=== PATIENT | female | born 1960 | race Caucasian/White ===

== ENCOUNTER 2017-03-06 17:04 | Emergency (ER) | payer OTHER ==
[~2017-03-06] VITALS: Ht 170.2 cm; Wt 78.0 kg
[2017-03-06] MEDS ORDERED: SERT50TA5 PO (17:37)
[2017-03-06] MEDS ORDERED: ONDANSETRON 2MG/ML, 2ML IVPush ONE (18:00)
[2017-03-06] MEDS ORDERED: SODIUM CHLORIDE 0.9% 1,000ML IVBOLUS ONE (18:00)
[2017-03-06] MEDS ORDERED: SODIUM CHLORIDE FLUSH 10ML SYR IVF ONE (18:00)
[2017-03-06] MEDS ORDERED: FAMOTIDINE 20 MG/2 ML IVP ONE (18:00)
[2017-03-06] MEDS ORDERED: FAMOTIDINE 20 MG/2 ML ONE (18:04)
[2017-03-06] MEDS ORDERED: ONDANSETRON 2MG/ML, 2ML ONE (18:04)
[2017-03-06 18:20] LABS: HEMATOCRIT 36.3 % (34.6-47.8); HEMOGLOBIN 11.9 g/dL (11.7-16.4); WHITE BLOOD COUNT 9.2 x10^3/uL (3.4-10)
[2017-03-06 18:32] LABS: ASPARTATE AMINO TRANSFERASE 11 U/L (15-37); BLOOD UREA NITROGEN 11 mg/dL (7-18)
[2017-03-06 20:10] VITALS: BP 108/56
== END 2017-03-06 20:13 | disposition home or self-care (01) ==
LOC: ED 19:11
DX: K80.50 Calculus of bile duct without cholangitis or cholecystitis without obstruction (principal)
CPT/HCPCS: 36415; 76700; 80053; 81001; 83690; 85025; 86677; 87086; 96361; 96374; 96375; 99285; J2405; J7030; S0028

== ENCOUNTER 2017-04-08 22:22 | Inpatient (IN) | payer OTHER ==
[~2017-04-08] VITALS: Ht 170.2 cm; Wt 79.0 kg
[~2017-04-08 22:22] MED LIST: SERT50TA5 PO
[2017-04-08] MEDS ORDERED: SODIUM CHLORIDE FLUSH 10ML SYR IVF ONE (23:00)
[2017-04-08] MEDS ORDERED: SODIUM CHLORIDE 0.9% 1,000ML IVBOLUS ONE (23:00)
[2017-04-08] MEDS ORDERED: ONDANSETRON 2MG/ML, 2ML IVPush ONE (23:00)
[2017-04-08] MEDS ORDERED: ONDANSETRON 2MG/ML, 2ML ONE (23:21)
[2017-04-08] MEDS ORDERED: HYDROmorphone 1 MG/ML, 1ML ONE (23:21)
[2017-04-08] MEDS: HYDROmorphone 1 MG/ML, 1ML IVPush PRN (23:28)
[2017-04-08 23:30] LABS: HEMATOCRIT 41.1 % (34.6-47.8); HEMOGLOBIN 13.4 g/dL (11.7-16.4)
[2017-04-08 23:39] LABS: ASPARTATE AMINO TRANSFERASE 212 U/L (15-37); BLOOD UREA NITROGEN 7 mg/dL (7-18)
[2017-04-09] MEDS ORDERED: HYDROmorphone 1 MG/ML, 1ML ONE (01:12)
[2017-04-09] MEDS: HYDROmorphone 1 MG/ML, 1ML IVPush PRN (01:16)
[2017-04-09] MEDS ORDERED: ONDANSETRON 2MG/ML, 2ML IVPush PRN (02:30)
[2017-04-09] MEDS ORDERED: D5%-0.45NACL+KCL 20MEQ 1,000 ML IV SCH (02:30)
[2017-04-09] MEDS ORDERED: MORPHINE SULFATE 4 MG/ML, 1ML IVPush PRN (02:30)
[2017-04-09] MEDS ORDERED: SODIUM CHLORIDE FLUSH 10ML SYR IVF PRN (02:30)
[2017-04-09] MEDS ORDERED: CEFOTETAN PMX 2GM/50ML 50 ML IV ONE (02:30)
[2017-04-09 04:08] VITALS: BP 139/76
[2017-04-09 07:25] VITALS: BP 105/65
[2017-04-09 09:10] VITALS: BP 117/75
[2017-04-09] MEDS ORDERED: HYDROmorphone 1 MG/ML, 1ML IV PRN (09:30)
[2017-04-09] MEDS: FAMOTIDINE 20 MG/2 ML IVPush SCH ×2 (11:12→22:41)
[2017-04-09] MEDS: CEFOTETAN PMX 2GM/50ML 50 ML IV SCH ×2 (11:13→23:27)
[2017-04-09] MEDS: D5%-0.45NACL+KCL 20MEQ 1,000 ML IV SCH ×2 (14:00→23:28)
[2017-04-09 14:05] VITALS: BP 101/55
[2017-04-09] MEDS: MORPHINE SULFATE 4 MG/ML, 1ML IVPush PRN ×2 (15:52→17:58)
[2017-04-09] MEDS: ONDANSETRON 2MG/ML, 2ML IVPush PRN (18:09)
[2017-04-09 21:18] VITALS: BP 122/65
[2017-04-10 03:26] VITALS: BP 109/65
[2017-04-10 05:14] LABS: HEMATOCRIT 36.5 % (34.6-47.8); HEMOGLOBIN 11.9 g/dL (11.7-16.4)
[2017-04-10 05:29] LABS: ASPARTATE AMINO TRANSFERASE 222 U/L (15-37); BLOOD UREA NITROGEN 2 mg/dL (7-18)
[2017-04-10 06:40] VITALS: BP 99/58
[2017-04-10] MEDS: D5%-0.45NACL+KCL 20MEQ 1,000 ML IV SCH ×2 (06:40→15:40)
[2017-04-10] MEDS ORDERED: PROPOFOL 10 MG/ML, 20ML ONE (07:12)
[2017-04-10] MEDS ORDERED: DEXAMETHASONE 4 MG/ML, 1ML ONE (07:12)
[2017-04-10] MEDS ORDERED: ONDANSETRON 2MG/ML, 2ML ONE (07:12)
[2017-04-10] MEDS ORDERED: ESMOLOL 100 MG/10 ML ONE (07:12)
[2017-04-10] MEDS ORDERED: ROCURONIUM 10 MG/ML ONE (07:12)
[2017-04-10] MEDS ORDERED: SUCCINYLCHOLINE 20 MG/ML, 10ML ONE (07:12)
[2017-04-10] MEDS ORDERED: LABETALOL 5MG/ML, 20ML IV PRN (07:30)
[2017-04-10] MEDS ORDERED: ONDANSETRON 2MG/ML, 2ML IVPush PRN (07:30)
[2017-04-10] MEDS ORDERED: FENTANYL PF 100 MCG/2ML IV PRN (07:30)
[2017-04-10] MEDS ORDERED: PROMETHAZINE 25 MG/ML, 1ML IV PRN (07:30)
[2017-04-10] MEDS ORDERED: HYDROmorphone 1 MG/ML, 1ML IV PRN (07:30)
[2017-04-10] MEDS ORDERED: hydrALAzine 20 MG/ML, 1ML IV PRN (07:30)
[2017-04-10] MEDS ORDERED: MIDAZOLAM 1 MG/ML, 2ML IV PRN (07:30)
[2017-04-10] MEDS ORDERED: OXYcodone 5 MG/5 ML ORAL.SOL UDC PO PRN (07:30)
[2017-04-10] MEDS ORDERED: ACETAMINOPHEN 325 MG TABLET PO PRN (07:30)
[2017-04-10 09:30] VITALS: BP 121/63
[2017-04-10] MEDS: FAMOTIDINE 20 MG/2 ML IVPush SCH ×2 (10:08→21:37)
[2017-04-10] MEDS: CEFOTETAN PMX 2GM/50ML 50 ML IV SCH ×2 (10:08→21:38)
[2017-04-10] MEDS: ONDANSETRON 2MG/ML, 2ML IVPush PRN (10:55)
[2017-04-10] MEDS: MORPHINE SULFATE 4 MG/ML, 1ML IVPush PRN (10:55)
[2017-04-10] MEDS: PROMETHAZINE 25 MG/ML, 1ML IM PRN (13:30)
[2017-04-10] MEDS ORDERED: HYDROmorphone 2 MG/ML, 1ML IVPush ONE (13:30)
[2017-04-10 13:35] VITALS: BP 111/62
[2017-04-10] MEDS ORDERED: PROMETHAZINE 25 MG/ML, 1ML IM PRN (14:00)
[2017-04-10] MEDS ORDERED: HYDROmorphone 2 MG/ML, 1ML IV ONE (14:00)
[2017-04-10] MEDS: HYDROmorphone 2 MG/ML, 1ML IV PRN ×4 (15:08→23:58)
[2017-04-10 19:00] VITALS: BP 135/74
[2017-04-10 19:50] VITALS: BP 107/64
[2017-04-10] MEDS ORDERED: HYDROmorphone 1 MG/ML, 1ML ONE ×2 (19:50→23:56)
[2017-04-11] MEDS: D5%-0.45NACL+KCL 20MEQ 1,000 ML IV SCH ×3 (00:49→18:27)
[2017-04-11 01:33] VITALS: BP 106/58
[2017-04-11] MEDS ORDERED: HYDROmorphone 1 MG/ML, 1ML ONE ×3 (05:15→23:07)
[2017-04-11] MEDS: HYDROmorphone 2 MG/ML, 1ML IV PRN ×8 (05:17→23:12)
[2017-04-11 05:32] LABS: HEMATOCRIT 39.3 % (34.6-47.8); HEMOGLOBIN 12.9 g/dL (11.7-16.4); WHITE BLOOD COUNT 12.6 x10^3/uL (3.4-10)
[2017-04-11 05:36] LABS: BLOOD UREA NITROGEN 7 mg/dL (7-18)
[2017-04-11 05:43] LABS: ASPARTATE AMINO TRANSFERASE 275 U/L (15-37)
[2017-04-11 07:43] VITALS: BP 109/52
[2017-04-11] MEDS: FAMOTIDINE 20 MG/2 ML IVPush SCH ×2 (08:07→19:57)
[2017-04-11] MEDS: CEFOTETAN PMX 2GM/50ML 50 ML IV SCH ×2 (08:08→22:38)
[2017-04-11 13:39] VITALS: BP 114/59
[2017-04-11] MEDS: DIPHENHYDRAMINE 50 MG/ML, 1ML IVPush PRN (15:30)
[2017-04-11] MEDS ORDERED: DIPHENHYDRAMINE 25 MG CAPSULE PO PRN (15:30)
[2017-04-11] MEDS ORDERED: FENTANYL PF 100 MCG/2ML ONE (15:50)
[2017-04-11] MEDS ORDERED: NALOXONE 1 MG/ML, 2ML ONE (15:50)
[2017-04-11] MEDS ORDERED: MIDAZOLAM 1 MG/ML, 5ML ONE (15:50)
[2017-04-11] MEDS ORDERED: FLUMAZENIL 0.1 MG/1 ML, 5ML ONE (15:50)
[2017-04-11] MEDS ORDERED: LIDOCAINE 2%, 20ML ONE (15:56)
[2017-04-11] MEDS: SERTRALINE 50MG TABLET PO SCH ×2 (19:57→19:59)
[2017-04-11 20:00] VITALS: BP 101/61
[2017-04-12] MEDS: D5%-0.45NACL+KCL 20MEQ 1,000 ML IV SCH ×3 (00:09→09:21)
[2017-04-12] MEDS: HYDROmorphone 2 MG/ML, 1ML IV PRN ×9 (01:56→23:43)
[2017-04-12 02:31] VITALS: BP 104/56
[2017-04-12] MEDS ORDERED: HYDROmorphone 1 MG/ML, 1ML ONE ×4 (04:39→23:40)
[2017-04-12 05:39] LABS: HEMATOCRIT 36.6 % (34.6-47.8); HEMOGLOBIN 12.1 g/dL (11.7-16.4); WHITE BLOOD COUNT 17.1 x10^3/uL (3.4-10)
[2017-04-12 05:54] LABS: ASPARTATE AMINO TRANSFERASE 203 U/L (15-37); BLOOD UREA NITROGEN 6 mg/dL (7-18)
[2017-04-12 06:51] VITALS: BP 98/60
[2017-04-12] MEDS: FAMOTIDINE 20 MG/2 ML IVPush SCH ×2 (09:21→20:18)
[2017-04-12] MEDS: CEFOTETAN PMX 2GM/50ML 50 ML IV SCH ×2 (09:22→22:27)
[2017-04-12 13:40] VITALS: BP 112/69
[2017-04-12] MEDS: D5%-0.9% NACL+KCL 20MEQ 1,000 ML IV SCH (19:05)
[2017-04-12] MEDS: SERTRALINE 50MG TABLET PO SCH (20:18)
[2017-04-12 20:34] VITALS: BP 106/61
[2017-04-13] MEDS ORDERED: HYDROmorphone 1 MG/ML, 1ML ONE ×2 (02:08→04:27)
[2017-04-13] MEDS: HYDROmorphone 2 MG/ML, 1ML IV PRN ×9 (02:11→18:31)
[2017-04-13] MEDS: DIPHENHYDRAMINE 50 MG/ML, 1ML IVPush PRN (02:18)
[2017-04-13 02:22] VITALS: BP 127/64
[2017-04-13] MEDS: D5%-0.9% NACL+KCL 20MEQ 1,000 ML IV SCH ×2 (04:30→14:03)
[2017-04-13 05:45] LABS: HEMATOCRIT 34.1 % (34.6-47.8); HEMOGLOBIN 11.3 g/dL (11.7-16.4); WHITE BLOOD COUNT 16.4 x10^3/uL (3.4-10)
[2017-04-13 06:24] LABS: ASPARTATE AMINO TRANSFERASE 55 U/L (15-37); BLOOD UREA NITROGEN 6 mg/dL (7-18)
[2017-04-13 07:27] VITALS: BP 130/78
[2017-04-13] MEDS: FAMOTIDINE 20 MG/2 ML IVPush SCH ×2 (09:48→22:57)
[2017-04-13] MEDS: CEFOTETAN PMX 2GM/50ML 50 ML IV SCH ×2 (11:02→22:58)
[2017-04-13] MEDS ORDERED: HYDROmorphone PCA 30 MG/30 ML IV PRN (17:30)
[2017-04-13] MEDS: SODIUM CHLORIDE 0.9% 1,000 ML IV SCH (18:34)
[2017-04-13] MEDS: ONDANSETRON 2MG/ML, 2ML IVPush PRN (18:35)
[2017-04-13] MEDS: HYDROmorphone PCA 30 MG/30 ML IV PRN (19:09)
[2017-04-13 21:02] VITALS: BP 113/49
[2017-04-13] MEDS: SERTRALINE 50MG TABLET PO SCH (22:57)
[2017-04-14] MEDS: SODIUM CHLORIDE 0.9% 1,000 ML IV SCH ×7 (01:22→22:06)
[2017-04-14 01:58] VITALS: BP 121/66
[2017-04-14 05:52] LABS: HEMATOCRIT 31.3 % (34.6-47.8); HEMOGLOBIN 10.5 g/dL (11.7-16.4); WHITE BLOOD COUNT 13.7 x10^3/uL (3.4-10)
[2017-04-14 06:18] LABS: ASPARTATE AMINO TRANSFERASE 20 U/L (15-37); BLOOD UREA NITROGEN 6 mg/dL (7-18)
[2017-04-14] MEDS ORDERED: BUPIVACAINE/PF 0.5% ONE (06:49)
[2017-04-14 08:30] VITALS: BP 113/69
[2017-04-14] MEDS: ENOXAPARIN 30 MG/0.3 ML SQ SCH ×2 (09:39→21:33)
[2017-04-14] MEDS: FAMOTIDINE 20 MG/2 ML IVPush SCH ×2 (09:39→21:33)
[2017-04-14] MEDS: CEFOTETAN PMX 2GM/50ML 50 ML IV SCH ×2 (10:00→22:05)
[2017-04-14 14:30] VITALS: BP 135/76
[2017-04-14 15:37] LABS: BLOOD UREA NITROGEN 6 mg/dL (7-18)
[2017-04-14 19:41] VITALS: BP 136/76
[2017-04-14] MEDS: ONDANSETRON 2MG/ML, 2ML IVPush PRN (19:52)
[2017-04-14] MEDS: SERTRALINE 50MG TABLET PO SCH (21:33)
[2017-04-15 01:55] VITALS: BP 128/67
[2017-04-15] MEDS: PROMETHAZINE 25 MG/ML, 1ML IM PRN (04:08)
[2017-04-15] MEDS: SODIUM CHLORIDE 0.9% 1,000 ML IV SCH ×4 (04:10→23:28)
[2017-04-15 04:46] LABS: HEMATOCRIT 28.7 % (34.6-47.8); HEMOGLOBIN 9.6 g/dL (11.7-16.4); WHITE BLOOD COUNT 9.4 x10^3/uL (3.4-10)
[2017-04-15 05:00] LABS: ASPARTATE AMINO TRANSFERASE 19 U/L (15-37); BLOOD UREA NITROGEN 9 mg/dL (7-18)
[2017-04-15 07:52] VITALS: BP 128/66
[2017-04-15] MEDS: FAMOTIDINE 20 MG/2 ML IVPush SCH ×2 (09:37→23:10)
[2017-04-15] MEDS: CEFOTETAN PMX 2GM/50ML 50 ML IV SCH ×2 (11:11→23:10)
[2017-04-15] MEDS ORDERED: MIDAZOLAM 1 MG/ML, 2ML ONE (13:56)
[2017-04-15] MEDS ORDERED: FENTANYL PF 100 MCG/2ML ONE ×6 (13:57→18:32)
[2017-04-15] MEDS ORDERED: CEFAZOLIN 1,000 MG ONE ×2 (13:57)
[2017-04-15] MEDS ORDERED: PROPOFOL 10 MG/ML, 20ML ONE (13:57)
[2017-04-15] MEDS ORDERED: ROCURONIUM 10 MG/ML ONE (13:58)
[2017-04-15] MEDS ORDERED: BUPIVACAINE/PF 0.5% ONE (14:25)
[2017-04-15] MEDS ORDERED: MEPERIDINE/PF 25MG/0.5ML IVPush PRN (14:30)
[2017-04-15] MEDS ORDERED: PROMETHAZINE 25 MG/ML, 1ML IV PRN (14:30)
[2017-04-15] MEDS ORDERED: ACETAMINOPHEN 325 MG TABLET PO PRN (14:30)
[2017-04-15] MEDS ORDERED: LABETALOL 5MG/ML, 20ML IV PRN (14:30)
[2017-04-15] MEDS ORDERED: hydrALAzine 20 MG/ML, 1ML IV PRN (14:30)
[2017-04-15] MEDS ORDERED: OXYcodone 5 MG/5 ML ORAL.SOL UDC PO PRN (14:30)
[2017-04-15] MEDS ORDERED: ONDANSETRON 2MG/ML, 2ML IVPush PRN (14:30)
[2017-04-15] MEDS ORDERED: BUPIVACAINE/PF-EPI 0.5% 1:200K IM ONE (15:22)
[2017-04-15] MEDS ORDERED: ONDANSETRON 2MG/ML, 2ML ONE (15:22)
[2017-04-15] MEDS ORDERED: DEXAMETHASONE 4 MG/ML, 1ML ONE ×2 (15:23)
[2017-04-15] MEDS ORDERED: NEOSTIGMINE 1 MG/ML, 10ML ONE (15:25)
[2017-04-15] MEDS ORDERED: GLYCOPYRROLATE 0.4 MG/2 ML, 2ML ONE ×2 (15:25)
[2017-04-15] MEDS ORDERED: OMNIPAQUE 350 MG/ML, 50 ML BOTTLE ONE (17:56)
[2017-04-15] MEDS ORDERED: HYDROmorphone 1 MG/ML, 1ML ONE (18:32)
[2017-04-15] MEDS ORDERED: HYDROmorphone PCA 30 MG/30 ML ONE (18:32)
[2017-04-15] MEDS: FENTANYL PF 100 MCG/2ML IV PRN ×2 (19:00→19:30)
[2017-04-15] MEDS: HYDROmorphone PCA 30 MG/30 ML IV PRN (19:02)
[2017-04-15] MEDS: HYDROmorphone 1 MG/ML, 1ML IV PRN ×2 (19:11→19:38)
[2017-04-15 20:08] VITALS: BP 115/70
[2017-04-15] MEDS ORDERED: HYDROmorphone PCA 30 MG/30 ML IV PRN (20:36)
[2017-04-15] MEDS ORDERED: HYDROmorphone 2 MG/ML, 1ML IV PRN (21:00)
[2017-04-15 23:39] VITALS: BP 133/69
[2017-04-16 03:26] VITALS: BP 127/67
[2017-04-16] MEDS: SODIUM CHLORIDE 0.9% 1,000 ML IV SCH ×4 (04:41→19:50)
[2017-04-16 05:02] LABS: BLOOD UREA NITROGEN 13 mg/dL (7-18)
[2017-04-16 05:03] LABS: HEMATOCRIT 27.7 % (34.6-47.8); HEMOGLOBIN 9.3 g/dL (11.7-16.4); WHITE BLOOD COUNT 11.9 x10^3/uL (3.4-10)
[2017-04-16 05:05] LABS: ASPARTATE AMINO TRANSFERASE 73 U/L (15-37)
[2017-04-16 08:07] VITALS: BP 122/69
[2017-04-16] MEDS: FAMOTIDINE 20 MG/2 ML IVPush SCH ×2 (10:37→21:20)
[2017-04-16] MEDS: CEFOTETAN PMX 2GM/50ML 50 ML IV SCH ×2 (10:37→21:20)
[2017-04-16] MEDS: ENOXAPARIN 30 MG/0.3 ML SQ SCH (14:56)
[2017-04-16 15:59] VITALS: BP 115/58
[2017-04-16 18:49] VITALS: BP 133/65
[2017-04-17] MEDS: SODIUM CHLORIDE 0.9% 1,000 ML IV SCH ×4 (01:17→16:12)
[2017-04-17 02:30] VITALS: BP 130/70
[2017-04-17] MEDS: ENOXAPARIN 30 MG/0.3 ML SQ SCH ×2 (04:28→16:12)
[2017-04-17 05:49] LABS: HEMATOCRIT 26.6 % (34.6-47.8); HEMOGLOBIN 8.8 g/dL (11.7-16.4); WHITE BLOOD COUNT 10.6 x10^3/uL (3.4-10)
[2017-04-17 07:45] VITALS: BP 138/69
[2017-04-17] MEDS: FAMOTIDINE 20 MG/2 ML IVPush SCH ×2 (09:42→21:33)
[2017-04-17] MEDS: CEFOTETAN PMX 2GM/50ML 50 ML IV SCH ×2 (09:55→21:33)
[2017-04-17 11:46] VITALS: BP 113/68
[2017-04-17 13:35] VITALS: BP 113/57
[2017-04-17 20:58] VITALS: BP 113/57
[2017-04-18] VITALS (7 sets, daily range): BP systolic 112–124; BP diastolic 56–73
[2017-04-18] MEDS: SODIUM CHLORIDE 0.9% 1,000 ML IV SCH (00:54)
[2017-04-18] MEDS: ENOXAPARIN 30 MG/0.3 ML SQ SCH ×2 (04:30→15:59)
[2017-04-18 09:34] LABS: HEMATOCRIT 25.7 % (34.6-47.8); HEMOGLOBIN 8.7 g/dL (11.7-16.4); WHITE BLOOD COUNT 10.8 x10^3/uL (3.4-10)
[2017-04-18 09:58] LABS: ASPARTATE AMINO TRANSFERASE 56 U/L (15-37); BLOOD UREA NITROGEN 4 mg/dL (7-18)
[2017-04-18] MEDS ORDERED: POTASSIUM CHLORIDE 40 MEQ in SODIUM CHLORIDE 0.9% 1,000 ML IV SCH ×2 (10:30→16:30)
[2017-04-18] MEDS ORDERED: NS + 20MEQ KCL 1,000 ML IV SCH (10:30)
[2017-04-18] MEDS: FAMOTIDINE 20 MG/2 ML IVPush SCH (10:37)
[2017-04-18] MEDS: CEFOTETAN PMX 2GM/50ML 50 ML IV SCH ×2 (10:37→23:07)
[2017-04-18 18:59] LABS: BLOOD UREA NITROGEN 3 mg/dL (7-18)
[2017-04-18] MEDS ORDERED: SODIUM CHLORIDE 0.45% 1,000 ML IV SCH (19:30)
[2017-04-18] MEDS ORDERED: POTASSIUM CHLORIDE 60 MEQ in SODIUM CHLORIDE 0.9% 1,000 ML IV ONE (19:30)
[2017-04-18] MEDS ORDERED: SODIUM CHLORIDE 0.9% 1,000 ML IV SCH (21:00)
[2017-04-18] MEDS ORDERED: FAMOTIDINE 20 MG/2 ML IVPush SCH (21:00)
[2017-04-19 05:52] LABS: WHITE BLOOD COUNT 8.6 x10^3/uL (3.4-10)
[2017-04-19 06:00] LABS: BLOOD UREA NITROGEN 3 mg/dL (7-18)
[2017-04-19 06:13] VITALS: BP 99/63
[2017-04-19] MEDS: ENOXAPARIN 30 MG/0.3 ML SQ SCH ×2 (06:57→16:04)
[2017-04-19 07:36] LABS: ASPARTATE AMINO TRANSFERASE 40 U/L (15-37); BLOOD UREA NITROGEN 3 mg/dL (7-18)
[2017-04-19] MEDS: POTASSIUM CHLORIDE 20 MEQ in SODIUM CHLORIDE 0.45% 1,000 ML IV SCH ×2 (08:44→17:55)
[2017-04-19 08:49] VITALS: BP 111/60
[2017-04-19] MEDS: CEFOTETAN PMX 2GM/50ML 50 ML IV SCH ×2 (10:42→22:42)
[2017-04-19] MEDS ORDERED: OMNIPAQUE 350 MG/ML, 50 ML BOTTLE ONE (14:10)
[2017-04-19 15:37] VITALS: BP 128/69
[2017-04-19 20:06] VITALS: BP 116/75
[2017-04-19] MEDS: FAMOTIDINE 20 MG/2 ML IVPush SCH (21:52)
[2017-04-20] MEDS: POTASSIUM CHLORIDE 20 MEQ in SODIUM CHLORIDE 0.45% 1,000 ML IV SCH ×2 (03:20→15:09)
[2017-04-20 03:33] VITALS: BP 118/69
[2017-04-20] MEDS: ENOXAPARIN 30 MG/0.3 ML SQ SCH ×2 (05:20→16:19)
[2017-04-20 05:30] LABS: HEMATOCRIT 27.2 % (34.6-47.8); HEMOGLOBIN 9.2 g/dL (11.7-16.4); WHITE BLOOD COUNT 8.4 x10^3/uL (3.4-10)
[2017-04-20 05:36] LABS: ASPARTATE AMINO TRANSFERASE 30 U/L (15-37); BLOOD UREA NITROGEN 1 mg/dL (7-18)
[2017-04-20 09:30] VITALS: BP 108/66
[2017-04-20] MEDS: CEFOTETAN PMX 2GM/50ML 50 ML IV SCH ×2 (10:29→22:25)
[2017-04-20] MEDS: FAMOTIDINE 20 MG/2 ML IVPush SCH ×2 (10:30→20:19)
[2017-04-20 14:37] VITALS: BP 121/75
[2017-04-20 18:52] VITALS: BP 112/71
[2017-04-20] MEDS: SERTRALINE 50MG TABLET PO SCH (20:19)
[2017-04-21] MEDS: POTASSIUM CHLORIDE 20 MEQ in SODIUM CHLORIDE 0.45% 1,000 ML IV SCH ×3 (00:32→18:22)
[2017-04-21 01:12] VITALS: BP 103/66
[2017-04-21 04:58] LABS: BLOOD UREA NITROGEN 2 mg/dL (7-18)
[2017-04-21 05:07] LABS: ASPARTATE AMINO TRANSFERASE 34 U/L (15-37)
[2017-04-21 07:15] VITALS: BP 118/72
[2017-04-21] MEDS: FAMOTIDINE 20 MG/2 ML IVPush SCH ×2 (09:58→21:06)
[2017-04-21] MEDS: CEFOTETAN PMX 2GM/50ML 50 ML IV SCH ×2 (10:53→22:03)
[2017-04-21 14:04] VITALS: BP 109/68
[2017-04-21] MEDS: ENOXAPARIN 30 MG/0.3 ML SQ SCH (16:35)
[2017-04-21 19:18] VITALS: BP 123/72
[2017-04-21 19:22] VITALS: BP 109/71
[2017-04-21] MEDS: SERTRALINE 50MG TABLET PO SCH (21:06)
[2017-04-22 02:07] VITALS: BP 100/63
[2017-04-22] MEDS: POTASSIUM CHLORIDE 20 MEQ in SODIUM CHLORIDE 0.45% 1,000 ML IV SCH ×3 (03:33→21:50)
[2017-04-22] MEDS: ENOXAPARIN 30 MG/0.3 ML SQ SCH ×2 (04:05→15:52)
[2017-04-22 07:40] VITALS: BP 103/65
[2017-04-22] MEDS: FAMOTIDINE 20 MG/2 ML IVPush SCH ×2 (09:16→21:50)
[2017-04-22] MEDS: CEFOTETAN PMX 2GM/50ML 50 ML IV SCH ×2 (10:44→21:50)
[2017-04-22 13:45] VITALS: BP 106/71
[2017-04-22 18:49] VITALS: BP 101/62
[2017-04-22] MEDS: SERTRALINE 50MG TABLET PO SCH (21:50)
[2017-04-23 00:56] VITALS: BP 107/66
[2017-04-23] MEDS: ENOXAPARIN 30 MG/0.3 ML SQ SCH ×2 (04:00→16:20)
[2017-04-23] MEDS: POTASSIUM CHLORIDE 20 MEQ in SODIUM CHLORIDE 0.45% 1,000 ML IV SCH ×2 (05:28→16:06)
[2017-04-23 06:55] VITALS: BP 106/73
[2017-04-23] MEDS: FAMOTIDINE 20 MG/2 ML IVPush SCH ×2 (09:05→21:38)
[2017-04-23] MEDS: CEFOTETAN PMX 2GM/50ML 50 ML IV SCH ×2 (09:12→21:38)
[2017-04-23 14:45] VITALS: BP 93/57
[2017-04-23 16:28] VITALS: BP 93/54
[2017-04-23 19:19] VITALS: BP 98/65
[2017-04-23] MEDS ORDERED: ACETAMINOPHEN 325 MG TABLET PO PRN ×2 (21:00→22:00)
[2017-04-23] MEDS: SERTRALINE 50MG TABLET PO SCH (21:38)
[2017-04-24] MEDS: POTASSIUM CHLORIDE 20 MEQ in SODIUM CHLORIDE 0.45% 1,000 ML IV SCH ×2 (01:28→10:39)
[2017-04-24 01:55] VITALS: BP 102/66
[2017-04-24] MEDS: ENOXAPARIN 30 MG/0.3 ML SQ SCH (04:42)
[2017-04-24 07:23] VITALS: BP 113/69
[2017-04-24] MEDS: FAMOTIDINE 20 MG/2 ML IVPush SCH (09:00)
[2017-04-24] MEDS: CEFOTETAN PMX 2GM/50ML 50 ML IV SCH (10:00)
[2017-04-24 12:52] VITALS: BP 106/62
== END 2017-04-24 13:10 | disposition home or self-care (01) | DRG 411 ==
LOC: ED 23:25 → EDIP 04-09 02:05 → 5SO 04-09 04:00 → 4NOR 04-09 17:35
PROVIDERS: ADMIT Surgery; ATTEND Surgery
PROC: 0FJB8ZZ Inspection of Hepatobiliary Duct, Via Natural or Artificial Opening Endoscopic (ICD-10-PCS; 2017-04-10)
PROC: 02HV33Z Insertion of Infusion Device into Superior Vena Cava, Percutaneous Approach (ICD-10-PCS; 2017-04-14)
PROC: B5181ZA Fluoroscopy of Superior Vena Cava using Low Osmolar Contrast, Guidance (ICD-10-PCS; 2017-04-14)
PROC: B548ZZA Ultrasonography of Superior Vena Cava, Guidance (ICD-10-PCS; 2017-04-14)
PROC: 0FC90ZZ Extirpation of Matter from Common Bile Duct, Open Approach (ICD-10-PCS; 2017-04-15)
PROC: BF101ZZ Fluoroscopy of Bile Ducts using Low Osmolar Contrast (ICD-10-PCS; 2017-04-15)
PROC: 0FJ44ZZ Inspection of Gallbladder, Percutaneous Endoscopic Approach (ICD-10-PCS; 2017-04-15)
PROC: 0FT40ZZ Resection of Gallbladder, Open Approach (ICD-10-PCS; principal; 2017-04-15 15:00)
DX: K80.63 Calculus of gallbladder and bile duct with acute cholecystitis with obstruction (principal); K85.90 Acute pancreatitis without necrosis or infection, unspecified; E46 Unspecified protein-calorie malnutrition; F32.9 Major depressive disorder, single episode, unspecified; F60.89 Other specific personality disorders; K82.8 Other specified diseases of gallbladder; Y84.8 Other medical procedures as the cause of abnormal reaction of the patient, or of later complication, without mention of misadventure at the time of the procedure; Z53.31 Laparoscopic surgical procedure converted to open procedure; Z82.49 Family history of ischemic heart disease and other diseases of the circulatory system; Z68.27 Body mass index [BMI] 27.0-27.9, adult
CPT/HCPCS: 36415; 36569; 47531; 74181; 74300; 75989; 76700; 76937; 77001; 80048; 80053; 81001; 82247; 82248; 83690; 85025; 86850; 86900; 86923; 87015; 87070; 87075; 87116; 87205; 87206; 88304; 93005; 96361; 96374; 96375; 96376; C1729; J0690; J1100; J1170; J1650; J2250; J2405; J2550; J2704; J2710; J3010; J3480; J3490; Q9967; C1751; C1769; J0330; J1200; J2310; J7030; S0028; S0074

== ENCOUNTER → 2017-05-06 | Outpatient (CLI) | payer OTHER | END | disposition home or self-care (01) | LOC: RAD 15:03 | PROVIDERS: ATTEND Surgery | DX: K91.89 Other postprocedural complications and disorders of digestive system (principal); Z90.49 Acquired absence of other specified parts of digestive tract | CPT/HCPCS: 47531; 76000 ==